=== PATIENT | female | born 1985 | race Caucasian/White ===

== ENCOUNTER 2020-07-17 00:46 | Day surgery (SDC) | payer BC, SELFPAY ==
[2020-07-16 12:41] VITALS: BMI 27.3
[2020-07-17 12:19] VITALS: BP 143/68; PULSE 83; RESP 20; TEMP 36.2; O2SAT 100
[2020-07-17] MEDS: ACETAMINOPHEN 500 MG TABLET 1000 MG PO (12:32)
--- NOTE | 2020-07-17 12:42 | WPDANESEPPF ---
Anes - Initial Pre Proc Eval Procedure: Operation Date: 07/17/20 14:00 Proposed Procedures p Suction Dilation And Curettage - Everardo Costello MD Date/Time: 07/17/20 12:42 Surgeon: Everardo Costello MD Pre Op Diagnosis: Missed AB Patient Data Age: 35 Gender: F Height: 5 ft 8 in Weight: 81.65 kg Allergies Allergy/AdvReac Type Severity Reaction Status Date / Time No Known Allergies Allergy Verified 07/16/20 12:30 Home Medications Medication Instructions Recorded Confirmed Type No Home Medications 07/16/20 07/16/20 History Patient hx anesthesia problems: none Family hx anesthesia problems: none PMFSH Social History Social History Smoking packs per day: 0.5 Smoking cigarettes per day: 10.0 Years smoked: 5 Smoking pack-years: 2.50 Smoking status: Former smoker Tobacco type: cigarettes Smoking end date: 09/04/09 Living arrangements: with family Spiritual care concerns: No Anes - Eval Final PreProcedure Day of Procedure 07/17/20 12:42 Patient weight: overweight Heart: regular rate and rhythm Lungs: clear to auscultation Airway: Mallampati scale class II Neurological: alert and oriented Last oral intake: >/= 8 hours ASA classification: II Emergent: no Anesthetic plan: proceed Anesthesia type and monitoring: general GIVS and standard monitoring Informed Consent: The patient's anesthetic plan and its attendant risks and benefits were discussed with the patient/family/POA. Questions were solicited and answers provided to the satisfaction of the patient/family/POA.
[2020-07-17] MEDS: LACTATED RINGERS 1,000 ML 30 ML IV CONT (12:44)
--- NOTE | 2020-07-17 12:58 | P.HP_ITS ---
H&P: HPI History of Present Illness Date/Time: 07/17/20 12:58 Chief complaint: Missed AB Narrative: 35 y/o with a missed SAB. LMP 04/28/20 puts her at 11w3d. Ultrasound shows an IUP, but no obvious embryo and no cardiac motion despite an hcg level of 138,000. No vaginal bleeding. Review of Systems Review of Systems: All systems reviewed & are unremarkable except as noted in HPI and below PMFSH Social History Social History Smoking packs per day: 0.5 Smoking cigarettes per day: 10.0 Years smoked: 5 Smoking pack-years: 2.50 Smoking status: Former smoker Tobacco type: cigarettes Smoking end date: 09/04/09 Living arrangements: with family Spiritual care concerns: No Meds Home Medications and Allergies Home Medications Medication Instructions Recorded Confirmed Type No Home Medications 07/16/20 07/16/20 History Allergies Allergy/AdvReac Type Severity Reaction Status Date / Time No Known Allergies Allergy Verified 07/16/20 12:30 Exam Const: Orientation/consciousness: patient oriented x3 Other: Well- developed, well-nourished female in no acute distress. Neck: Thyroid: thyroid normal Lymphatic: no lymphadenopathy noted (in neck, axilla or inguinal nodes) Resp: Effort & Inspection: normal respiratory effort Auscultation: clear to auscultation bilaterally Cardio: Rate: regular rate Rhythm: regular rhythm Heart sounds: S1 normal heart sound present and S2 normal heart sound present GI: Other: ABD: Soft, nontender, nondistended. No guarding or rebound tenderness. No hepatosplenomegaly. : General: Yes no CVA tenderness Other: External genitalia: normal female hair distribution, without lesion. Urethral meatus: no lesion, non prolapsed. Bladder: no mass, nontender Vagina: well-estrogenized, without lesion or discharge. No cystocele or rectocele. Cervix: no lesion or discharge. Uterus: small, anteverted, freely mobile, nontender Adnexa: no mass or tenderness. Anus/perineum: no lesions, nontender Back/Spine/Pelvis: Back: no CVA tenderness Skin: General skin exam: normal color and no rashes or lesions noted Neuro: General: patient oriented x3 Extrem: Other: Extremities: nontender with no edema Psych: Mental Status: mental status grossly normal Affect: normal affect Assessment and Plan Assessment and plan (1) Missed : Code(s): O02.1 - Missed Status: Acute Assessment and Plan: Offered expectant management vs surgical management. She prefers the latter. I have offered her a dilation and suction curettage. She understands risks of surgery to include risks of anesthesia, risks of pain, infection, bleeding, blood products, thromboembolic phenomena and damage to adjacent structures such as bowel, bladder, ureters, blood vessels and nerves. She understands all these risks and elects to proceed with surgery.
--- NOTE | 2020-07-17 14:33 | WPDHPUPDATE1 ---
History and Physical Update Update Date/Time: 07/17/20 14:33 History and Physical has been reviewed, including an updated exam of the patient. There are NO changes in the patient's condition. Risks, benefits, and alternatives have been discussed and questions answered. Patient agrees to proceed with procedure.
[2020-07-17] MEDS: LIDOCAINE HCL 1% LOCAL INJ 20 ML VIAL 10 ML INFILTRATE (14:50)
[2020-07-17] MEDS: KETOROLAC 30 MG/ML VIAL (*BKC) IV PUSH (14:55)
--- NOTE | 2020-07-17 14:58 | PM.PROC ---
Procedure Note - Detailed Date of procedure: 07/17/20 Pre-op diagnosis: Missed AB Post-op diagnosis: same Procedure performed: Dilation and suction curettage Description of procedure: The patient was taken to the operating room where she was prepared and draped in the usual sterile fashion in the dorsal lithotomy position. The bladder was drained with a red rubber catheter. A sterile speculum was placed into the vagina. The anterior lip of the cervix was grasped with a single-tooth tenaculum. Ten mL of 1% lidocaine was administered in a paracervical block. The cervix was gently dilated using Hegar dilators until an 8mm dilator could be passed. The 8mm curved tip suction curette was advanced. Suction curettage was performed and products of conception were aspirated. Sharp curettage was then performed until a good uterine cry was noted. A final pass with the suction curette was made. The tenaculum was removed. Hemostasis was excellent. Sponge, lap, needle and instrument counts were correct. The patient was taken to the recovery room in stable condition. I was present and scrubbed for the entire procedure. Implants: None Anesthesia: MAC and local (paracervical block) Surgeon: Everardo Costello MD Estimated blood loss (mL): 100 Drains: No Packing: No Pathology: yes (endometrial curettings) Complications: None Condition: stable Disposition: PACU Findings: Products of conception noted.
[2020-07-17 15:00] VITALS: BP 116/62; PULSE 74; RESP 16; O2SAT 94
[2020-07-17 15:30] VITALS: BP 123/66; PULSE 71
== END 2020-07-17 15:50 | disposition home or self-care (01) ==
PROVIDERS: Visit Provider Obstetrics & Gynecology
PROC: (CPT 59820; principal; 2020-07-17 14:00)
DX: O02.1 Missed abortion (principal); Z87.891 Personal history of nicotine dependence
CPT/HCPCS: 59820; 36415; 85461; 88305; A9270; J1885; J2250; J2405; J2590; J2704; J3010; J7120

== ENCOUNTER 2021-09-16 10:37 | Outpatient (CLI) | payer BC, SELFPAY ==
--- NOTE | ~2021-09-16 | US_ITS ---
EXAMINATION: US OB follow up EXAM DATE: 09/16/2021 11:53 INDICATION: EFW, PRADIP, growth. 3rd trimester. TECHNIQUE: Pelvic obstetrical transabdominal sonogram was performed by a technologist. There are mu ltiple grayscale and Doppler images available for interpretation. There are no earlier studies of th is gestation for comparison. FINDINGS: There is a single fetus identified in vertex presentation with a heart rate of 134 beats pe r minute. The placenta is located in the anterior position. There is no sonographic evidence of retr oplacental hemorrhage identified. The amniotic fluid index is 17.3 centimeters, which is normal. BIOMETRIC DATA: Biparietal diameter (BPD): 10.4 cm ----------------> out of range, greater than 97th percentile. Head circumference (HC): 34.2 cm ----------------> 39 weeks 3 days. Abdominal circumference (AC): 36.2 cm ----------> 40 weeks 1 day. Femur length (FL): 7.9 cm --------------------------> 40 weeks 4 days. These measurements are concordant. HC/AC ratio is 0.94 (The 5th -- 95th percentile range is 0.90-1.03. Estimated weight is 4125 g +/- 619 g. This is the greater than 97th percentile when the [facility] reported clinical gestation age 37 weeks 5 days, clinical estimated date of delivery (MJ-OPE) is used. estimated gestational age based on measurements from this exam is 40 weeks 0 d ays, with an estimated date of delivery (MJ-AUA) 09/16. IMPRESSION: 1. Single fetus in vertex presentation with heart rate 134 beats per minute. 2. Estimated weight 4125 grams, >97th percentile using the currently reported clinical gestati on age of 37 weeks 5 days, MJ(OPE) 10/02. Due date is today based on measurements obtained with this exam. 3. Normal PRADIP 17.3 cm. Reviewed, dictated and finalized at location A. [facility] IMPRESSION: 1. Single fetus in vertex presentation with heart rate 134 beats per minute. 2. Estimated weight 4125 grams, >97th percentile using the currently rep orted clinical gestation age of 37 weeks 5 days, MJ(OPE) 10/02. Due date is tod ay based on measurements obtained with this exam. 3. Normal PRADIP 17.3 cm.
== END 2021-09-16 10:38 | disposition home or self-care (01) ==
PROVIDERS: Visit Provider Obstetrics & Gynecology
DX: Z34.93 Encounter for supervision of normal pregnancy, unspecified, third trimester (principal); N62 Hypertrophy of breast; Z3A.00 Weeks of gestation of pregnancy not specified
CPT/HCPCS: 76816

== ENCOUNTER 2021-09-25 16:56 | Observation (INO) | payer BC, SELFPAY ==
--- NOTE | 2021-09-29 05:55 | P.PNOB_ITS ---
OB - Triage/Final Diagnosis Visit Information Date of evaluation: 09/25/21 Reason for evaluation: threatened labor Comments/Additional reasons for admission: I have assessed the risk for this patient, Holly Rockwell, and determined that she would benefit from ob servation care.
== END 2021-09-25 19:55 | disposition home or self-care (01) ==
PROVIDERS: Admitting Provider Student in an Organized Health Care Education/Training Program; Visit Provider Student in an Organized Health Care Education/Training Program
DX: O47.1 False labor at or after 37 completed weeks of gestation (principal); Z3A.39 39 weeks gestation of pregnancy
CPT/HCPCS: G0378; G0379

== ENCOUNTER 2021-09-27 04:57 | Inpatient (IN) | payer BC, SELFPAY ==
[2021-09-27] VITALS (101 sets, daily range): BP systolic 99–163; BP diastolic 45–93; PULSE 63–152; RESP 16; TEMP 36.5–37.4; O2SAT 94–100; BMI 34.5
[2021-09-27] MEDS: LACTATED RINGERS 1,000 ML 125 ML IV CONT ×3 (05:37→12:22)
[2021-09-27] MEDS: AMPICILLIN 2 GM/NS 100 ML 2 GM/100 ML BAG IVPB (05:39)
[2021-09-27 05:44] LABS: Basophils Absolute Auto 0.1 K/mm3 (0.0-0.1); Basophils Percent Auto 0.5 % (0.2-1.2); Eosinophils Absolute Auto 0.2 K/mm3 (0-0.3); Eosinophils Percent Auto 1.7 % (0-4.4); Hematocrit 34.5 % (37.0-47.0); Hemoglobin 10.9 g/dL (12.0-15.0); Immature Granulocyte Absolute 0.08 K/mm3 (0.00-0.031); Immature Granulocyte Percent A 0.8 % (0-0.5); Lymphocytes Absolute Auto 2.16 K/mm3 (0.9-3.2); Lymphocytes Percent Auto 20.4 % (18.3-44.2); Mean Corpuscular HGB Conc 31.6 g/dl (32-36); Mean Corpuscular Hemoglobin 25.4 pg (26-34); Mean Corpuscular Volume 80.4 fl (80-100); Mean Platelet Volume 11.3 fl (7.4-10.4); Monocytes Absolute Auto 0.7 K/mm3 (0.1-0.6); Monocytes Percent Auto 6.7 % (2.6-8.5); Neutrophils Absolute Auto 7.4 K/mm3 (1.3-6.7); Neutrophils Percent Auto 69.9 % (45.5-73.1); Platelet Count Result 159 k/mm3 (150-375); Red Blood Count 4.29 M/mm3 (4.2-5.4); Red Cell Distribution Width 16.3 % (11.5-14.5); White Blood Count 10.6 K/mm3 (4.5-10.0)
[2021-09-27] MEDS: OXYTOCIN 30 UNITS/NS 500 ML 30 UNITS/500 ML BAG IV CONT (05:48)
--- NOTE | 2021-09-27 07:41 | WPDOBADMIT ---
Obstetrics - Admit Note Admission Note: record reviewed. Additions to the history and/or subsequent changes in the physical findings follow. 36 y/o at 39 2/7 weeks here for induction of labor. GBS pos. EFW 97th percentile. AVSS NST reactive TOCO: contractions every 4-6 weeks. ABD soft, nontender, gravid, vertex EXT nontender Cervix 3/50/-2. AROM with clear fluid. A: IUP at term, favorable cervix, GBS pos. P: Oxytocin. Ampicillin. Anticipate .
--- NOTE | 2021-09-27 08:35 | WPDANESEPP ---
Anes - Eval Pre Procedure Procedure: labor epidural Date/Time: 09/27/21 08:35 Surgeon: simone Pre Op Diagnosis: IOL Patient Data Age: 36 Gender: F Height: 1.73 m Weight: 103 kg Last Vital Signs Temp 37.2 C 09/27/21 07:41 Pulse 75 09/27/21 08:31 Resp 16 09/27/21 05:52 BP 128/76 09/27/21 08:31 Allergies Allergy/AdvReac Type Severity Reaction Status Date / Time No Known Allergies Allergy Verified 09/27/21 05:22 Home Medications Medication Instructions Recorded Confirmed Type PNV cmb#95-ferrous fumarate-FA 1 tablet PO DAILY 09/16/21 09/16/21 History [] Laboratory Tests 09/27/21 09/27/21 09/27/21 05:35 05:35 05:35 WBC 10.6 K/mm3 H K/mm3 (4.5-10.0) RBC 4.29 M/mm3 M/mm3 (4.2-5.4) Hgb 10.9 g/dL L g/dL (12.0-15.0) Hct 34.5 % L % (37.0-47.0) MCV 80.4 fl fl (80-100) MCH 25.4 pg L pg (26-34) MCHC 31.6 g/dl L g/dl (32-36) RDW 16.3 % H % (11.5-14.5) Plt Count 159 k/mm3 k/mm3 (150-375) MPV 11.3 fl H fl (7.4-10.4) Immature Gran % (Auto) 0.8 % H % (0-0.5) Neut % (Auto) 69.9 % % (45.5-73.1) Lymph % (Auto) 20.4 % % (18.3-44.2) [place] % (Auto) 6.7 % % (2.6-8.5) Eos % (Auto) 1.7 % % (0-4.4) Baso % (Auto) 0.5 % % (0.2-1.2) Lymph # (Auto) 2.16 K/mm3 K/mm3 (0.9-3.2) [place] # (Auto) 0.7 K/mm3 H K/mm3 (0.1-0.6) Eos # (Auto) 0.2 K/mm3 K/mm3 (0-0.3) Baso # (Auto) 0.1 K/mm3 K/mm3 (0.0-0.1) Abs Immat Gran (auto) 0.08 K/mm3 H K/mm3 (0.00-0.031) Absolute Neuts (auto) 7.4 K/mm3 H K/mm3 (1.3-6.7) Absolute Nucleated RBC 0.0 K/mm3 K/mm3 (0.0-0.012) Nucleated RBC % 0.0 % % (0.0-0.2) RPR Pending Blood Type O Positive Antibody Screen Negative Patient hx anesthesia problems: none Family hx anesthesia problems: none Results Review: All pre-operative results and documents have been reviewed as part of the pre-operative evaluation. [facility], [facility] Family History Family History (Updated 09/27/21 @ 05:43 by Mala Vang RN) Grandparent No pertinent past medical history Diabetes mellitus Social History Social History Smoking packs per day: 0.5 Smoking cigarettes per day: 10.0 Years smoked: 5 Smoking pack-years: 2.50 Smoking status: Former smoker Tobacco type: cigarettes Second hand tobacco smoke exposure: No Smoking end date: 09/04/09 Substance use: never Spiritual care concerns: No Exam Day of Procedure 09/27/21 08:35
[2021-09-27] MEDS: AMPICILLIN 1 GM/NS 50 ML 1 GM/50 ML BAG IVPB (09:33)
[2021-09-27 10:55] LABS: Rapid Plasma Reagin Non-Reactive (NonReactive)
--- NOTE | 2021-09-27 12:41 | PM.OBPNLAB ---
Pain Control Date/time seen: 09/27/21 12:41 Comments: Comfortable with epidural. Pelvic Exam Dilation (cm): 7 Effacement (%): 80 station: -1 Contractions Contraction frequency: 4 Contraction pattern: Regular Status Comments: NST reactive TOCO: contractions every 3-4 min Assessment and Plan Comments: Continue labor
--- NOTE | 2021-09-27 13:32 | PM.OBPRVD ---
OB - Delivery Note Procedure Delivery date: 09/27/21 Procedure: Induction of labor with Induction method: AROM and per pitocin protocol Delivery monitor: external FHT, external uterine and internal uterine Route of delivery: Laceration Description: Perineal - 2nd Degree Delivery repair: vicryl (3-0) Specimen: Yes (cord blood) Quantitative Blood Loss (ml): 120 Anesthesia type: Epidural Disposition: PACU Complications: None Narrative: 36 y/o at 39 2/7 weeks gestation who presented to the hospital for induction of labor. She was given ampicillin for GBS colonization. Oxytocin was administered intravenously. Amniotomy was performed with return of clear fluid. She received an epidural for pain control. Her labor progressed and her cervix dilated completely. She pushed with good effort and delivered the infant's head to the perineum, followed by the body. The nose and mouth were bulb suctioned. After a delay, the cord was clamped and cut. The was handed off the field. Cord blood was collected. The placenta delivered spontaneously and was grossly normal in appearance. The usual 3 vessel cord was noted. A second degree midline perineal laceration was sustained. This was reapproximated using 3 0 Vicryl in the usual layered fashion. Excellent hemostasis resulted as did excellent reapproximation of the normal anatomy. Needle and instrument counts were correct. The patient was taken to recovery room in stable condition. The went to the nursery in stable condition. I was present and scrubbed for the entire delivery. [place] Baby Date of : 09/27/21 Time of : 13:13 Weeks of gestation at delivery: 39 gender: Male Weight (pounds): 9 Weight (ounces): 3 presentation: vertex position: Right Occiput Anterior Placenta delivery description: Spontaneous and Normal Configuration cord vessel description: 3 Vessels and Delayed Cord Clamping score one minute: 8 score five minutes: 9
--- NOTE | 2021-09-27 13:34 | PM.OBDSVD ---
DS: Admitting Diagnosis Discharge Date 09/29/21 Admitting Diagnosis IUP at 39 2/7 weeks Favorable cervix GBS colonization DS: Discharge Diagnosis Discharge Diagnosis (1) (normal spontaneous vaginal delivery): Code(s): O80 - Encounter for full-term uncomplicated delivery Status: Acute (2) GBS (group B Streptococcus carrier), +RV culture, currently : Code(s): O99.820 - Streptococcus B carrier state complicating Status: Acute OB - DS: Summary OB Procedures : None OB Procedures Intrapartum: Spontaneous Vag Delivery OB Procedures: : None DS: Data Data Completed and Pending Labs on day of discharge: Labs from last 24 hours 09/27/21 09/27/21 09/27/21 05:35 05:35 05:35 WBC 10.6 H RBC 4.29 Hgb 10.9 L Hct 34.5 L MCV 80.4 MCH 25.4 L MCHC 31.6 L RDW 16.3 H Plt Count 159 MPV 11.3 H Immature Gran % (Auto) 0.8 H Neut % (Auto) 69.9 Lymph % (Auto) 20.4 [place] % (Auto) 6.7 Eos % (Auto) 1.7 Baso % (Auto) 0.5 Lymph # (Auto) 2.16 [place] # (Auto) 0.7 H Eos # (Auto) 0.2 Baso # (Auto) 0.1 Abs Immat Gran (auto) 0.08 H Absolute Neuts (auto) 7.4 H Absolute Nucleated RBC 0.0 Nucleated RBC % 0.0 RPR Non-reactive Blood Type O Positive Antibody Screen Negative Discharge Plan Discharge Attending physician on discharge: Everardo Costello Discharging Clinician: Everardo Costello Patient Disposition: Home, Self-Care Activity: pelvic rest Diet: regular Discharge Instructions: Call or return if temperature above 100.4? F, increased abdominal pain, increased vaginal bleeding or any new problems. Stand Alone Forms: General Discharge Information Follow-up/Referrals: Everardo Costello MD [Physician] - 6 Weeks Discharge Medications: New ibuprofen 600 mg tablet 600 mg PO Q6H PRN (Reason: cramps) Qty: 30 RF: 0 Continued PNV cmb#95-ferrous fumarate-FA [] 28 mg iron- 800 mcg Tablet 1 tablet PO DAILY RF: 0 Date of admission: 09/27/21 04:57 Primary Care Provider: PHYSICIAN,[facility] [employer] Admitting Provider: Everardo Costello Attending physician on admission: Everardo Costello Condition: Stable
[2021-09-27] MEDS: OXYTOCIN 30 UNITS/NS 500 ML 30 UNITS/500 ML BAG 125 UNITS IV CONT (13:41)
[2021-09-27] MEDS: WITCH HAZEL 40 PADS 1 PAD TOPICAL (15:43)
[2021-09-27] MEDS: BENZOCAINE 20% AER SPR (*SP) 56 GM CAN 1 SPRAY TOPICAL (15:43)
--- NOTE | 2021-09-27 15:58 | OBPPTRN ---
Patient transferred to post room #285 via wheelchair. Support person present. Oriented to unit, room, information board, rooming in, admission packet and security measures. Patient verbalizes understanding. with patient.
[2021-09-27] MEDS: IBUPROFEN 600 MG TABLET PO ×2 (16:16→22:06)
[2021-09-27] MEDS: ACETAMINOPHEN 325 MG TABLET 650 MG PO (20:50)
[2021-09-28 00:40] VITALS: BP 134/88; PULSE 62; RESP 16; TEMP 36.7; O2SAT 98
[2021-09-28] MEDS: ACETAMINOPHEN 325 MG TABLET 650 MG PO ×3 (02:20→19:34)
[2021-09-28 04:10] VITALS: BP 125/76; PULSE 69; RESP 16; TEMP 36.6; O2SAT 98
[2021-09-28] MEDS: IBUPROFEN 600 MG TABLET PO ×3 (04:20→21:43)
[2021-09-28 05:17] LABS: Hematocrit 31.8 % (37.0-47.0); Hemoglobin 10.1 g/dL (12.0-15.0)
[2021-09-28 08:20] VITALS: BP 118/65; PULSE 74; RESP 18; TEMP 36.6; O2SAT 100
[2021-09-28] MEDS: MULTIVIT/MIN/PREN/FOL AC/IRON TABLET 1 TAB PO (08:20)
--- NOTE | 2021-09-28 09:41 | WPDANLDPN2 ---
Anes-Prog Note L&D Date/Time: 09/28/21 09:41 Comfortable throughout: labor and delivery Neuraxial method: epidural Epidural/Spinal procedure site: clean & non-tender Neuro status: Neuro function grossly intact. Cardiovascular status: normal Respiratory status: normal Airway patency: baseline Mental status: baseline Post-Op hydration status: normal Vital Signs: Last Vital Signs Temp 36.6 C 09/28/21 08:20 Pulse 74 09/28/21 08:20 Resp 18 09/28/21 08:20 BP 118/65 09/28/21 08:20 Pulse Ox 100 09/28/21 08:20 Pain score (VAS): 0 Post-procedural complaints: none Patient feedback: Patient satisfied with anesthetic care.
[2021-09-28 13:46] VITALS: BP 116/74; PULSE 80; RESP 16; TEMP 36.8; O2SAT 99
--- NOTE | 2021-09-28 18:00 | PM.OBPNVD ---
OB - PN: Subj Subjective Date/time seen: 09/28/21 18:00 Narrative: Pain OK. Would like circumcision for son. OB - PN: Obj Data Labs CBC & Chem 7: 09/28/21 04:18 Labs: Laboratory Results - last 24 hr 09/28/21 04:18 Hgb 10.1 L Hct 31.8 L OB - PN A/P Plan Comments: A: PPD#1, doing well. P: Routine care. Reviewed circ. Exam Psych: Other: AVSS ABD soft, nontender, fundus firm EXT nontender
[2021-09-28 19:38] VITALS: BP 130/73; PULSE 89; RESP 18; TEMP 36.8
--- NOTE | 2021-09-28 21:13 | PC.NURSE ---
[address] Silvestre per phone to report change in pt condition. @ 1655 Pt sleeping and could not arouse, HR 122, BP 122/67, PO2 77, Resp 20, applied 10 L O2 per Nonrebreather mask and stopped Morphine DELIVERY AGENT @ 1700 PO2 95. Urine output 45cc. Give Narcan, Stat H&H and Call Hospitalist to come evaluate pt. She stated she will be here in 20 minutes. 1711 Called Hospitalist and left a VM. 1712 Called [employer] and stated that the Hospitalist did not answer. [employer] gave this ext. to call [phone] and stated if you do not get ahold of them call me back. Called that number and did not get an answer. 1714 called HS back and got no answer. 1718 Gave .25 ml Narcan, no response, 1720 Gave .25 ml Narcan Pt woke up. She was responsive when questions ask of her. soon after this Dr. Silvestre here.
--- NOTE | 2021-09-28 21:31 | PC.NURSE ---
1815 Pt transported per bed to CT Scan. 1835 Returned to room 281 per bed.
--- NOTE | 2021-09-28 21:34 | PC.NURSE ---
1453 Called PT to see when they are coming to evaluate pt? They Decided that OT needed to come see pt. OT will not be here until tomorrow 09/29/2021 in the AM. Please change the order to OT.
[2021-09-29] MEDS: ACETAMINOPHEN 325 MG TABLET 650 MG PO ×2 (02:08→10:36)
[2021-09-29] MEDS: TETANUS,DIPHTHERIA,AC PERTUSSIS ADULT (0.5 ML) BOOSTRIX IM (05:00)
[2021-09-29] MEDS: IBUPROFEN 600 MG TABLET PO (05:00)
[2021-09-29 08:30] VITALS: BP 131/53; PULSE 72; RESP 18; TEMP 36.4; O2SAT 98
--- NOTE | 2021-09-29 09:01 | PM.OBPNVD ---
OB - PN: Subj Subjective Date/time seen: 09/29/21 09:01 Narrative: Pain OK. Would like to go home. OB - PN: Obj Data Labs CBC & Chem 7: 09/28/21 04:18 OB - PN A/P Plan Comments: A: PPD#2, doing well. P: Home to f/u 6 weeks. Exam Psych: Other: AVSS ABD soft, nontender, fundus firm EXT nontender
[2021-09-29] MEDS: MULTIVIT/MIN/PREN/FOL AC/IRON TABLET 1 TAB PO (10:35)
[2021-09-29] MEDS: DOCUSATE SODIUM 100 MG CAPSULE PO (10:35)
--- NOTE | 2021-09-29 11:04 | PC.NURSE ---
0930 - Introductions were made and mother led the conversation with regards to her experience feeding her baby. Reminded parents to use good handwashing to prevent infection, encouraged skin to skin and reviewed techniques to stimulate to eat. Infant has had appropriate feedings in the past 24 hours and meets the outcomes for weight, output and jaundice. Mother states she feels confident to continue effectively her at home. Using handout tool to assist with improving latching and reviewed positioning with demonstration and mom/baby guide. Assisted mom with baby to left breast in the cross cradle position. Dad is actively involved. Reviewed production of human milk, transition of milk, signs of adequate intake and engorgement prevention/relief and when to call the infant care provider using the mom and baby guide as reinforcement of teaching. Directed mother to the community resources, outpatient services and when to call baby or mom's provider using the mom and baby guide resource. Reinforced watching for feeding cues with responsive feeding and how to stimulate infant to initiate feeding three hours from the start of the last feeding. Mother voiced understanding of information shared. Reported to primary RN.
[2021-09-30 11:40] VITALS: BP 136/67; PULSE 79; RESP 20; TEMP 37.2; O2SAT 100
== END 2021-09-29 12:15 | disposition home or self-care (01) | DRG 807 ==
LOC: ANHLDR 13:35 → ANHOB2 16:00
PROVIDERS: Admitting Provider Obstetrics & Gynecology; Visit Provider Obstetrics & Gynecology
DX: O99.824 Streptococcus B carrier state complicating childbirth (principal); Z37.0 Single live birth; O70.1 Second degree perineal laceration during delivery; O76 Abnormality in fetal heart rate and rhythm complicating labor and delivery; Z3A.39 39 weeks gestation of pregnancy
CPT/HCPCS: 36415; 85014; 85018; 85025; 86592; 86850; 86900; 86901; 90715; A9270; G0378; G0379; J0290; J2590; J2795; J7120